=== PATIENT | male | born 1995 | race Caucasian/White ===

== ENCOUNTER 2023-06-18 14:03 | Emergency (ER) | payer OTHER ==
[~2023-06-18] VITALS: Ht 185.4 cm; Wt 102.3 kg
[2023-06-18 14:26] VITALS: TEMP 98.3
[2023-06-18] MEDS ORDERED: ZITHROMAX Z PA250 MG PO (15:29)
[2023-06-18 15:36] VITALS: BP 137/89; PULSE 76
== END 2023-06-18 15:36 | disposition home or self-care (01) ==
LOC: COL.ER 14:03
DX: J20.9 Acute bronchitis, unspecified (principal)